=== PATIENT | male | born 1945 | race Caucasian/White ===

== ENCOUNTER 2019-07-20 04:28 | Inpatient (IN) | payer OTHER, MEDICARE ==
[~2019-07-20] VITALS: Ht 182.9 cm; Wt 84.5 kg
[2019-07-20 04:50] LABS: BASOPHILS ABSOLUTE AUTO 0.13 K/mm3 (0.00-0.23); BASOPHILS PERCENT AUTO 1 % (0-2); EOSINOPHILS ABSOLUTE AUTO 0.57 K/mm3 (0.00-0.68); EOSINOPHILS PERCENT AUTO 4 % (0-6); Hematocrit 45.2 % (37.0-53.0); IMMATURE GRAN ABSOLUTE AUTO 0.16 K/mm3 (0.00-0.10); IMMATURE GRAN PERCENT AUTO 1 % (0-1); LYMPHOCYTES ABSOLUTE AUTO 3.85 K/mm3 (0.84-5.20); LYMPHOCYTES PERCENT AUTO 29 % (21-46); MONOCYTES ABSOLUTE AUTO 1.31 K/mm3 (0.16-1.47); MONOCYTES PERCENT AUTO 10 % (4-13); Mean Corpuscular HGB 30.8 pg (26.0-34.0); Mean Corpuscular HGB Conc 33.2 g/dL (31.5-36.5); Mean Corpuscular Volume 93 fL (80-100); Mean Platelet Volume 9.9 fL (9.1-12.4); NEUTROPHILS PERCENT AUTO 55 % (41-73); Platelet Count 418 K/mm3 (150-400); RDW Coefficient Variation 14.6 % (11.7-14.2); Red Blood Cell Count 4.87 M/mm3 (4.30-5.90); White Blood Cell Count 13.32 K/mm3 (4.00-11.30)
[2019-07-20 05:02] LABS: PO2 Arterial 77.5 mmHg (80-100)
[2019-07-20 05:03] LABS: pH Blood Arterial 7.28 (7.35-7.45)
[2019-07-20 05:04] LABS: International Normalized Ratio 1.01; Prothrombin Time Results 10.8 Sec (9.7-11.5)
[2019-07-20 05:06] LABS: Alanine Aminotransfer (ALT/SGP 28 U/L (12-78); Albumin, Blood 3.4 g/dL (3.4-5.0); Alk Phos 74 U/L (50-136); Anion Gap 7 mmol/L (6-16); Aspartate Aminotrans (AST/SGOT 29 U/L (12-37); Bilirubin, Total 0.8 mg/dL (0.1-1.0); Blood Urea Nitrogen 17 mg/dL (8-24); Bun/Creatinine Ratio 21.9 (12.0-20.0); CO2, Blood 26 mmol/L (21-32); Calcium, Blood 8.3 mg/dL (8.5-10.1); Chloride, Blood 108 mmol/L (98-108); Creatinine, Blood 0.78 mg/dL (0.60-1.20); Globulin, Blood 3.5 g/dL (2.2-4.0); Glomerular Filtration Rate >60 (60-); Glucose, Blood 201 mg/dL (70-99); Potassium, Blood 3.9 mmol/L (3.5-5.5); Sodium, Blood 141 mmol/L (136-145); Total Protein, Blood 6.9 g/dL (6.4-8.2)
[2019-07-20 05:23] LABS: Ethanol (Alcohol), Blood, Med <3 mg/dL
[2019-07-20] MEDS ORDERED: BACL10 PO (05:27)
[2019-07-20] MEDS ORDERED: POTCHL20ER PO (05:27)
[2019-07-20] MEDS ORDERED: FURO40 PO (05:27)
[2019-07-20] MEDS ORDERED: ELIQUIS5 MG PO (05:28)
[2019-07-20] MEDS ORDERED: FINA5 PO (05:29)
[2019-07-20] MEDS ORDERED: METO25ER PO (05:29)
[2019-07-20] MEDS ORDERED: SPIR25 PO (05:29)
[2019-07-20] MEDS ORDERED: BENA20 PO (05:30)
[2019-07-20] MEDS ORDERED: TRAZ100 PO (05:30)
[2019-07-20] MEDS ORDERED: TAMS.4ER PO (05:30)
[2019-07-20] MEDS ORDERED: Norco 5-325 Ta1 EACH PO (05:31)
--- NOTE | 2019-07-20 09:59 | NUR ---
Echocardiogram completed.
--- NOTE | 2019-07-20 10:00 | NUR ---
ADMIT PT ADMIT TO ICU 15 VIA STRETCHER FROM THE ED. PT AMBULATORY AND SELF TRANSFERED TO ICU BED. ALERT AND ORIENT, PLEASENT AND DENIES PAIN AT THIS TIME. FOLLOWING ALL COMMANDS. VSS, ST, PAPL PULSES T/O AND PROTONIX AND OCTREO QTT INFUSING. 2L NC WITH SATS WNL. CLEAR AND DIM BILAT AND NO S/S OF RESP DISTRESS. NPO, NO BM. VOIDING CLEAR YELLOW URINE VIA URINAL. FAMILY AT BEDSIDE WILL CONT TO MONITOR
[2019-07-20 10:33] LABS: Hematocrit 46.5 % (37.0-53.0); Hemoglobin 15.4 g/dL (13.5-17.5)
--- NOTE | 2019-07-20 15:23 | NUR ---
PT INTO SDS. TRANSFERED VIA BED FROM ICU. VSS. 3L 02 VIA NASAL CANNULA. PT CONFIRMS NPO STATUS. AND DAUGHTER AT BEDSIDE.
[2019-07-20 16:47] LABS: Adenovirus Not Detected (NOT DETECT); Bordetella pertussis Not Detected (NOT DETECT); Chlamydophila pneumoniae Not Detected (NOT DETECT); Coronavirus 229E Not Detected (NOT DETECT); Coronavirus HKU1 Not Detected (NOT DETECT); Coronavirus NL63 Not Detected (NOT DETECT); Coronavirus OC43 Not Detected (NOT DETECT); Human Metapneumovirus Not Detected (NOT DETECT); Human Rhinovirus/Enterovirus Not Detected (NOT DETECT); Influenza A Not Detected (NOT DETECT); Influenza A/2009-H1 Not Detected (NOT DETECT); Influenza A/H1 Not Detected (NOT DETECT); Influenza A/H3 Not Detected (NOT DETECT); Influenza B Not Detected (NOT DETECT); Mycoplasma pneumoniae Not Detected (NOT DETECT); Parainfluenza Virus 1 Not Detected (NOT DETECT); Parainfluenza Virus 2 Not Detected (NOT DETECT); Parainfluenza Virus 3 Not Detected (NOT DETECT); Parainfluenza Virus 4 Not Detected (NOT DETECT); Respiratory Syncytial Virus Not Detected (NOT DETECT)
--- NOTE | 2019-07-20 16:59 | NUR ---
07/20/19 1659 Shea Nichols MAC CASE WITH DR. GORDON. SEE ANETHESIA RECORD FOR CARE
--- NOTE | 2019-07-20 17:42 | NUR ---
RETURN FROM ENDO PT ADMIT TO ICU 15 VIA STRETCHER FROM THE ENDO. PT AMBULATORY AND SELF TRANSFERED TO ICU BED. ALERT AND ORIENT, PLEASENT AND DENIES PAIN AT THIS TIME. FOLLOWING ALL COMMANDS. VSS, ST, PAPL PULSES T/O AND OCTREO QTT INFUSING. 2L NC WITH SATS WNL. CLEAR AND DIM BILAT AND NO S/S OF RESP DISTRESS. NPO, NO BM. VOIDING CLEAR YELLOW URINE VIA URINAL. WILL CONT TO MONITOR
[2019-07-20 18:05] LABS: Hematocrit 45.4 % (37.0-53.0); Hemoglobin 15.1 g/dL (13.5-17.5)
--- NOTE | 2019-07-20 22:18 | NUR ---
ASSUMPTION OF CARE ASSUMED CARE OF PT @ 1900, PT AWAKE IN BED, ALERT AND ORIENTED TO SELF, PLACE, SITUATION AND FOLLOWING DIRECTIONS. PT ON RA, O2 SATURATIONS IN THE LOW 90'S, PT PLACED ON 2L PER NC @ 2100 AFTER OXYGEN SATURATIONS DECREASED TO 88-89%. INCENTIVE SPIROMETER PROVIDED, EDUCATED ON USE. MONITOR SHOWS SINUS RHYTHM AT THIS TIME, HR 80-90'S, BP STABLE WITH SBP 120'S. PT TOLERATING PO INTAKE, DENIES GI/ ISSUES AT THIS TIME. OBTAINED MEDICATION LIST FROM PTS DAUGHTER, NEW ORDER FOR HYDROCODONE/ACETAMINOPHEN AND TRAZADONE FOR THIS EVENING. CALL LIGHT WITHIN REACH.
[2019-07-20 22:26] LABS: Hemoglobin 14.4 g/dL (13.5-17.5)
[2019-07-21 04:40] LABS: Hematocrit 42.4 % (37.0-53.0); Hemoglobin 13.9 g/dL (13.5-17.5); Mean Corpuscular HGB 29.7 pg (26.0-34.0); Mean Corpuscular HGB Conc 32.8 g/dL (31.5-36.5); Mean Corpuscular Volume 91 fL (80-100); Mean Platelet Volume 10.2 fL (9.1-12.4); Platelet Count 322 K/mm3 (150-400); RDW Coefficient Variation 14.8 % (11.7-14.2); RDW Standard Deviation 49.1 fL (35.1-46.3); Red Blood Cell Count 4.68 M/mm3 (4.30-5.90); White Blood Cell Count 10.94 K/mm3 (4.00-11.30)
[2019-07-21 05:02] LABS: Alanine Aminotransfer (ALT/SGP 23 U/L (12-78); Albumin, Blood 3.2 g/dL (3.4-5.0); Alk Phos 50 U/L (50-136); Anion Gap 6 mmol/L (6-16); Aspartate Aminotrans (AST/SGOT 19 U/L (12-37); Bilirubin, Total 0.9 mg/dL (0.1-1.0); Blood Urea Nitrogen 17 mg/dL (8-24); Bun/Creatinine Ratio 25.5 (12.0-20.0); CO2, Blood 27 mmol/L (21-32); Calcium, Blood 8.4 mg/dL (8.5-10.1); Chloride, Blood 107 mmol/L (98-108); Creatinine, Blood 0.67 mg/dL (0.60-1.20); Globulin, Blood 3.1 g/dL (2.2-4.0); Glomerular Filtration Rate >60 (60-); Glucose, Blood 147 mg/dL (70-99); Sodium, Blood 140 mmol/L (136-145); Total Protein, Blood 6.3 g/dL (6.4-8.2)
--- NOTE | 2019-07-21 06:31 | NUR ---
SHIFT SUMMARY PT AWAKE FOR MOST OF SHIFT, REMAINS ALERT AND ORIENTED. O2 SATURATIONS 90-93% ON 3L PER NC. MONITOR SHOWS SINUS RHYTHM, HR 80'S-90'S, HTN WITH SBP 140-150'S. NO BM THIS SHIFT, PT TOLERATING PO INTAKE, VOIDING INDEPENDENTLY IN URINAL. SOME TACHYCARDIA NOTED WITH EXERTION, WITH HR 100-120. INCENTIVE SPIROMETER AT BEDSIDE, CALL LIGHT WITHIN REACH.
--- NOTE | 2019-07-21 08:00 | NUR ---
PT AMBULATORY ALERT AND ORIENT, PLEASENT AND DENIES PAIN AT THIS TIME. FOLLOWING ALL COMMANDS. VSS, ST, PALP PULSES, ON RA WITH SATS IN LOW 90S CLEAR AND DIM BILAT AND NO S/S OF RESP DISTRESS. TOLERATING DIET AND NO N/V NO BM. VOIDING CLEAR YELLOW URINE VIA URINAL. FAMILY AT BEDSIDE WILL CONT TO MONITOR
[2019-07-21 10:38] LABS: Hematocrit 42.7 % (37.0-53.0); Hemoglobin 14.2 g/dL (13.5-17.5)
--- NOTE | 2019-07-21 11:54 | NUR ---
RECEIVED REPORT FROM ROLY AT 1133. PATIENT ARRIVED TO ROOM 313 AT 1145 AND WAS ORIENTED TO THE ROOM AND REMOTE. ASSISTED TO THE BATHROOM. SAT AT [facility] WITH LUNCH THAT HE VANI UP FROM ICU. WILL CONTINUE TO MONITOR AND PROVIDE CARE NEEDED.
[2019-07-21] MEDS ORDERED: OMEP20ER PO (12:34)
[2019-07-21] MEDS ORDERED: PRED20 PO (12:35)
[2019-07-21] MEDS ORDERED: ALBU2.5V5 INH (12:37)
[2019-07-21] MEDS ORDERED: AIRDUO RESPICL1 EAC3 INH (12:38)
--- NOTE | 2019-07-21 13:02 | NUR ---
APPARENTLY PATIENT WAS DISCHARGED HOME FROM ICU BY DR ALFRED. PATIENT WAS TALKED INTO STAYING ANOTHER NIGHT FROM HIS DUE TO SAFETY ISSUES OF BEING AT HOME ALONE. NONE OF THIS WAS RELAYED TO ME AND I WAS GIVEN REPORT ON PATIENT. PATIENT WAS TRANSFERED TO ROOM 313 AT 1145, DR ALFRED WAS NOT NOTIFIED OF THIS BY THE RECREATION THERAPY TEACHER. DR ALFRED CAME UP TO SEE THE PATIENT AND INFORMED ME HE WAS "GOOD TO GO". I ASKED HIM WHAT THAT MEANT, MD SAID THE PATIENT WAS DISCHARGED. I LATER CALLED DR ALFRED AT 1300 AND EXPRESSED THE CONCERN OF HIS OF HIM GOING HOME ALONE BECAUSE HE FALLS ALL THE TIME. DR ALFRED SAID HE IS SO FRUSTERATED AND CONFUSED AND TO TALK WITH MY CHARGE NURSES AND COFFEE WEIGHER. I UPDATED TALIA HI AND JENAE DIXON AND AM WAITING TO SPEAK WITH STEVEN WITH COFFEE WEIGHER.
--- NOTE | 2019-07-21 14:30 | NUR ---
DISCHARGE INSTRUCTIONS DISCUSSED WITH PATIENT. PIV TO L HAND REMOVED. ALL QUESTIONS ANSWERED. EDUCATIONAL MATERIAL PROVIDED. PATIENT TO STAY WITH OVERNIGHT IN HER HOSPITAL ROOM, 312.
== END 2019-07-21 14:21 | disposition home or self-care (01) | DRG 380 ==
LOC: ER 04:28 → ERHOLD 05:47 → ICUW 05:47 → MEDS 07-21 11:59
PROVIDERS: Emergency Medicine; ADMIT Internal Medicine
PROC: 30233N1 Transfusion of Nonautologous Red Blood Cells into Peripheral Vein, Percutaneous Approach (ICD-10-PCS; 2019-07-20)
PROC: 0DJ08ZZ Inspection of Upper Intestinal Tract, Via Natural or Artificial Opening Endoscopic (ICD-10-PCS; principal; 2019-07-21)
DX: K22.70 Barrett's esophagus without dysplasia (principal); J96.01 Acute respiratory failure with hypoxia; J44.1 Chronic obstructive pulmonary disease with (acute) exacerbation; I50.32 Chronic diastolic (congestive) heart failure; I48.20 Chronic atrial fibrillation, unspecified; K92.2 Gastrointestinal hemorrhage, unspecified; I11.0 Hypertensive heart disease with heart failure; M54.16 Radiculopathy, lumbar region; Z85.828 Personal history of other malignant neoplasm of skin; M21.379 Foot drop, unspecified foot; D17.5 Benign lipomatous neoplasm of intra-abdominal organs
CPT/HCPCS: 0099U; 36415; 36430; 36600; 71045; 80053; 82803; 82947; 83690; 83880; 85014; 85018; 85025; 85027; 85610; 86850; 86900; 86901; 86923; 93005; 93010; 93306; 94640; 94644; 96374; 96375; 96376; 99285-25; A9270-GY; C9113; G0480; J1940; J2354; J2405; J2704; J2930; J7030; J7050; J7120; J7512; P9016

== ENCOUNTER 2019-08-30 08:53 | Emergency (ER) | payer OTHER ==
[~2019-08-30] VITALS: Ht 182.9 cm; Wt 86.2 kg
[~2019-08-30 08:53] MED LIST: AIRDUO RESPICL1 EAC3 INH; ALBU2.5V5 INH; BACL10 PO; BENA20 PO; ELIQUIS5 MG PO; FINA5 PO; FURO40 PO; METO25ER PO; Norco 5-325 Ta1 EACH PO; OMEP20ER PO; POTCHL20ER PO; PRED20 PO; SPIR25 PO; TAMS.4ER PO; TRAZ100 PO
[2019-08-30] MEDS ORDERED: SERT100 PO (09:33)
[2019-08-30 09:59] LABS: BASOPHILS ABSOLUTE AUTO 0.12 K/mm3 (0.00-0.23); BASOPHILS PERCENT AUTO 1 % (0-2); EOSINOPHILS ABSOLUTE AUTO 0.25 K/mm3 (0.00-0.68); EOSINOPHILS PERCENT AUTO 2 % (0-6); Hematocrit 47.4 % (37.0-53.0); Hemoglobin 15.2 g/dL (13.5-17.5); IMMATURE GRAN ABSOLUTE AUTO 0.16 K/mm3 (0.00-0.10); IMMATURE GRAN PERCENT AUTO 1 % (0-1); LYMPHOCYTES ABSOLUTE AUTO 1.86 K/mm3 (0.84-5.20); LYMPHOCYTES PERCENT AUTO 13 % (21-46); MONOCYTES PERCENT AUTO 6 % (4-13); Mean Corpuscular HGB 30.2 pg (26.0-34.0); Mean Corpuscular HGB Conc 32.1 g/dL (31.5-36.5); Mean Corpuscular Volume 94 fL (80-100); Mean Platelet Volume 10.4 fL (9.1-12.4); NEUTROPHILS ABSOLUTE AUTO 10.74 K/mm3 (1.96-9.15); NEUTROPHILS PERCENT AUTO 77 % (41-73); Platelet Count 435 K/mm3 (150-400); RDW Coefficient Variation 14.6 % (11.7-14.2); RDW Standard Deviation 50.6 fL (35.1-46.3); Red Blood Cell Count 5.04 M/mm3 (4.30-5.90); White Blood Cell Count 14.03 K/mm3 (4.00-11.30)
[2019-08-30 10:15] LABS: International Normalized Ratio 1.02; Prothrombin Time Results 10.9 Sec (9.7-11.5)
[2019-08-30 10:21] LABS: Alanine Aminotransfer (ALT/SGP 22 U/L (12-78); Albumin, Blood 3.3 g/dL (3.4-5.0); Albumin/Globulin Ratio 1.1 (0.8-1.8); Alk Phos 51 U/L (50-136); Anion Gap 4 mmol/L (6-16); Aspartate Aminotrans (AST/SGOT 15 U/L (12-37); Bilirubin, Total 0.5 mg/dL (0.1-1.0); Blood Urea Nitrogen 23 mg/dL (8-24); Bun/Creatinine Ratio 24.3 (12.0-20.0); CO2, Blood 31 mmol/L (21-32); Calcium, Blood 8.3 mg/dL (8.5-10.1); Chloride, Blood 106 mmol/L (98-108); Creatinine, Blood 0.95 mg/dL (0.60-1.20); Globulin, Blood 3.1 g/dL (2.2-4.0); Glomerular Filtration Rate >60 (60-); Glucose, Blood 106 mg/dL (70-99); Potassium, Blood 4.1 mmol/L (3.5-5.5); Sodium, Blood 141 mmol/L (136-145); Total Protein, Blood 6.4 g/dL (6.4-8.2)
== END 2019-08-30 12:00 | disposition home or self-care (01) ==
LOC: ER 08:53
PROVIDERS: Emergency Medicine
DX: K92.2 Gastrointestinal hemorrhage, unspecified (principal); Z85.118 Personal history of other malignant neoplasm of bronchus and lung; Z79.899 Other long term (current) drug therapy
CPT/HCPCS: 80053; 85025; 85610; 85730; 86850; 86900; 86901; 96374; 99285-25; C9113